=== PATIENT | male | born 1980 | race Caucasian/White ===

== ENCOUNTER → 2019-09-11 | Outpatient (CLI) | payer BC ==
--- NOTE | 2019-09-11 08:33 | CT ---
EXAMINATION TYPE: CT soft tissue neck w con, CT sinus wo con DATE OF EXAM: 09/11/2019 8:13 AM COMPARISON: CT facial bones 05/09/2015 HISTORY: anterior throat pain, radiates into jaw (accession [id number]), chronic sinusitis (accession [id number]) CT DLP: 578.1 (accession [id number]), 728.4 (accession [id number]) mGycm Automated exposure control for dose reduction was used. CONTRAST: CT scan of the neck and sinuses is performed following with IV Contrast, patient injected with 100 mL of Isovue 300. Axial images are obtained, coronal and sagittal reformatted images are reviewed. FINDINGS: Airway: There are punctate calcifications along the pharyngeal soft tissues consistent with chronic i nfection. Parotid/submandibular glands: No gross abnormality seen. Carotid/Vascular Structures: Transverse aorta, 3 super aortic branch vessels are patent. Left and rig ht vertebral arteries are patent and codominant. Internal and external carotid arteries are patent. Osseous Structures: There is inflammatory change involving the maxillary sinuses, mucoperiosteal thic kening is present, there may be mucus retention cyst in the antrum of the right maxillary sinus, exte nsive inflammatory change also present within the ethmoid air cells, frontal ethmoidal junction. Osti omeatal units are patent although there is inflammatory change, mucoperiosteal thickening extending a t this level. There is a deviated nasal septum towards the left. Cerumen present in the external morris tory canals bilaterally. Previously identified inferior blowout fracture on the right on prior CT marry ws residual incomplete fracture healing, bone defect. Small amount of fat herniated through the infer ior orbital wall defect on the right. No muscular entrapment identified. Some mild degenerative disc changes present in the lower cervical spine. Other: No evident adenopathy, shotty nodes are present along the cervical chains.. IMPRESSION: Pansinusitis. Old inferior blowout fracture right orbit, chronic tonsillitis findings ar e suggested as described, correlate.
== END | disposition home or self-care (01) ==
LOC: RADCTMAIN 07:42
PROVIDERS: ATTEND Otolaryngology
DX: J32.4 Chronic pansinusitis (principal); Z87.81 Personal history of (healed) traumatic fracture; J32.9 Chronic sinusitis, unspecified; R07.0 Pain in throat
CPT/HCPCS: 70491; 70486; Q9967

== ENCOUNTER 2020-04-27 13:01 | Emergency (ER) | payer BC, OTHER ==
[2020-04-27 13:12] VITALS: BP 149/87; PULSE 77; RESP 18; TEMP 98.4
[2020-04-27] MEDS ORDERED: RABIES IMMUNE GLOB 300 UNIT/ML 1 ML VIAL IM ONE (13:47)
[2020-04-27] MEDS ORDERED: RABIES VACCINE (PCEC) 2.5 UNIT KIT IM ONE (13:47)
[2020-04-27] MEDS ORDERED: RABIES IMMUNE GLOB 300 UNIT/ML 5 ML VIAL IM ONE (14:00)
--- NOTE | 2020-04-27 14:20 | ED ---
Skin/Abscess/FB HPI - General Chief complaint: Skin/Abscess/Foreign Body Stated complaint: [facility] potential rabies exposure Time Seen by Provider: 04/27/20 13:16 Source: patient Mode of arrival: ambulatory Limitations: no limitations - History of Present Illness Initial comments: Patient is a 39-year-old male presenting to the emergency Department with prosper yanez of possible rabies exposure. Patient is a secretary of police and stated that yesterday he went to a call with a rabid raccoon, he killed the raccoon with his club. Patient states when he was cleaning up the animal he thinks he may have been exposed to the raccoons blood and possible saliva. Patient states he has a few minor cuts on his hands and is very concerned that he might get rabies from this. He states the animal is in the customers garbage can and was not tested. Patient states he believes it was very rabid. Patient denies any other symptoms at this time, no fever, no chills, no pain in his hands. He denies any pertinent past medical history. He has no further complaints at this time. - Related Data Previous Rx's Medication Instructions Recorded Amoxicillin 500 mg PO Q8H #30 capsule 05/09/15 HYDROcodone/APAP 10-325MG [[place] 1 tab PO Q6H PRN #20 tab 05/09/15 10-325] Allergies Allergy/AdvReac Type Severity Reaction Status Date / Time No Known Allergies Allergy Verified 04/27/20 13:12 Review of Systems ROS Statement: Those systems with pertinent positive or pertinent negative responses have been documented in the HPI. ROS Other: All systems not noted in ROS Statement are negative. Past Medical History Past Medical History: No Reported History History of Any Multi-Drug Resistant Organisms: None Reported Past Surgical History: Orthopedic Surgery Additional Past Surgical History / Comment(s): KNEE SURGERY, sinus surgery Past Psychological History: No Psychological Hx Reported Smoking Status: Former smoker Past Alcohol Use History: Occasional Past Drug Use History: None Reported General Exam - General Exam Comments Initial Comments: GENERAL: Patient is well-developed and well-nourished. Patient is nontoxic and in no acute distress. HEAD: Atraumatic, normocephalic. EYES: Pupils equal round and reactive to light, extraocular movements intact, sclera anicteric, conjunctiva are normal. Eyelids were unremarkable. ENT: TMs normal, nares patent, oropharynx clear without exudates. Moist mucous membranes. NECK: Normal range of motion, supple without lymphadenopathy or JVD. LUNGS: Unlabored respirations. Breath sounds clear to auscultation bilaterally and equal. No wheezes rales or rhonchi. HEART: Regular rate and rhythm without murmurs, rubs or gallops. ABDOMEN: Soft, nontender, normoactive bowel sounds. No guarding, no rebound. No masses appreciated. : Deferred MUSCULOSKELETAL: Normal extremities with adequate strength and normal range of motion, no pitting or edema. No clubbing or cyanosis. NEUROLOGICAL: Patient is alert and oriented x 3. Motor and sensory are also intact. Cranial nerves II through XII grossly intact. Symmetrical smile. Normal speech, normal gait. PSYCH: Normal mood, normal affect. SKIN: Warm, Dry, normal turgor, no rashes. Patient has a few very mild abrasions to both hands, all look old and healing. No new wounds are noted. Limitations: no limitations Course Vital Signs 04/27/20 13:08 Temperature 98.4 F Pulse Rate 77 Respiratory 18 Rate Blood Pressure 149/87 O2 Sat by Pulse 99 Oximetry Medical Decision Making - Medical Decision Making Patient is a 39-year-old male here for concerns of possible rabies exposure yesterday while he was at work. His vital signs are stable. Patient has no new wounds noted on his hands, he does have a few old scratches that are healing. Patient will be started on the rabies vaccine, first dose given today as well as the rabies immunoglobulin. He will repeat these doses on day 3, day 7, and a 14. He is stable for discharge at this time. He can follow up with his regular doctor. He is in agreement with this plan of care. Case discussed with Dr. Adams. Disposition Clinical Impression: Rabies exposure Disposition: HOME SELF-CARE Condition: Stable Instructions (If sedation given, give patient instructions): Rabies Vaccine (ED) Additional Instructions: Please return to the Emergency Department if symptoms worsen or any other concerns. Continue with rabies vaccine on day 3, day 7, day 14 as prescribed. Is patient prescribed a controlled substance at d/c from ED?: No Referrals: Madisyn Lewis DO [Primary Care Provider] - 1-2 days
== END 2020-04-27 14:46 | disposition home or self-care (01) ==
LOC: EC 13:01
DX: Z20.3 Contact with and (suspected) exposure to rabies (principal); Z87.891 Personal history of nicotine dependence
CPT/HCPCS: 90375; 90471; 90675; 96372; 99283

== ENCOUNTER → 2020-07-19 | Outpatient (CLI) | payer BC ==
--- NOTE | 2020-07-19 10:18 | CT ---
EXAMINATION TYPE: CT brain wo con DATE OF EXAM: 07/19/2020 COMPARISON: None INDICATION: Headaches DLP: 1121 mGycm, Automated exposure control for dose reduction was used. CONTRAST: None CT of the brain is performed utilizing 3 mm thick sections through the posterior fossa and 3 mm thick sections through the remaining calvarium. Study is performed within 24 hours of arrival to the hosp ital. No abnormal hyperdensity is present to suggest an acute intracranial hemorrhage. No mass lesion is evident. No acute infarcts are evident. Ventricles and sulci are appropriate for the patient age. Post ethmoidectomy is evident. Uncinectomies and then performed. Mild mucosal thickening within resid ual ethmoid air spaces. Mastoid air cells are clear. IMPRESSIONS: 1. Normal CT Brain
== END | disposition home or self-care (01) ==
LOC: RADCTMAIN 09:12
PROVIDERS: ATTEND Family Medicine
DX: R51.9 Headache, unspecified (principal)
CPT/HCPCS: 70450

== ENCOUNTER → 2020-09-23 | Outpatient (CLI) | payer BC ==
--- NOTE | 2020-09-24 08:29 | CT ---
EXAMINATION TYPE: CT soft tissue neck w con DATE OF EXAM: 09/23/2020 COMPARISON: None HISTORY: Pain in throat CT DLP: 675.70 mGycm CONTRAST: CT scan of the neck is performed with IV Contrast, patient injected with 100 mL of Isovue 300. Contrast enhanced CT of the neck was performed from the skull base through the lung apices. AIRWAY: The supraglottic, glottic, and subglottic portions of the airway appear patent and free of mass. SALIVARY GLANDS: The submandibular and parotid glands are free of mass or inflammatory process. THYROID GLAND: No nodules or masses seen. LYMPH NODES: No adenopathy seen greater than 1cm. LUNG APICES: No nodule or mass is seen. OTHER: Vascular structures are patent. No significant degenerative change of the cervical spine. N o abscess seen. IMPRESSION: No significant abnormality seen to account for the patient's symptoms.
== END | disposition home or self-care (01) ==
LOC: RADCTMAIN 18:45
PROVIDERS: ATTEND Nurse Practitioner Family
DX: R07.0 Pain in throat (principal)
CPT/HCPCS: 70491; Q9967

== ENCOUNTER → 2020-10-11 | Outpatient (CLI) | payer BC ==
--- NOTE | 2020-10-11 14:23 | CT ---
EXAMINATION TYPE: CT sinus wo con DATE OF EXAM: 10/11/2020 COMPARISON: 09/11/2019 HISTORY: Chronic sinusitis CT DLP: 667.[address] of the paranasal sinuses was performed in the axial and coronal planes. Bone and soft tissue settings are submitted. The paranasal sinuses demonstrate normal aeration and development. The bilateral medial maxillary antrectomy and partial ethmoidectomy noted. There are a few thickened remaining inferior ethmoid air cells. Mucosal thickening of the frontal sinuses. Sphenoid sinuses wel l aerated. The osteal meatal units are patent bilaterally. The nasal septum is midline. No bony destructive changes are seen within the field of view. IMPRESSION: Chronic ethmoidal and frontal sinusitis. Postoperative changes as noted.
== END | disposition home or self-care (01) ==
LOC: RADCTMAIN 13:27
PROVIDERS: ATTEND Family Medicine
DX: J32.1 Chronic frontal sinusitis (principal); J32.2 Chronic ethmoidal sinusitis
CPT/HCPCS: 70486

== ENCOUNTER 2022-12-02 17:57 | Emergency (ER) | payer BC ==
[2022-12-02] MEDS ORDERED: FAMOTIDINE 20 MG/2 ML VIAL IV STA (18:56)
[2022-12-02] MEDS ORDERED: SODIUM CHLORIDE 0.9% 500 ML 500 ML IV STA (18:56)
[2022-12-02] MEDS ORDERED: diphenhydrAMINE 50 MG/ML 1 ML VIAL IVP STA (18:56)
[2022-12-02 21:20] VITALS: RESP 18
--- NOTE | 2022-12-02 21:41 | ED ---
Skin/Abscess/FB HPI - General Chief complaint: Skin/Abscess/Foreign Body Stated complaint: Allergic Reaction Time Seen by Provider: 12/02/22 18:14 Source: patient Mode of arrival: ambulatory Limitations: no limitations - History of Present Illness Initial comments: This patient is a 42-year-old man presenting to have evaluation of what he believes is ALLERGIC reaction. The patient relates that he had and given a cortisone injection in his foot. Later he noticed that he was developing itchy rash and swelling around the eyes and face. The patient's denies no other known exposure. No wheezing or dyspnea noted. No vomiting or diarrhea. MD complaint: rash -: hour(s) Tetanus Up to Date: yes Location: generalized, face Consistency: constant Improves with: none Worsens with: none Context: new medication Associated symptoms: denies other symptoms - Related Data Previous Rx's Medication Instructions Recorded Famotidine [Pepcid] 20 mg PO BID #14 tablet 12/02/22 diphenhydrAMINE [Benadryl] 50 mg PO QID PRN #30 capsule 12/02/22 Allergies Allergy/AdvReac Type Severity Reaction Status Date / Time rabies immune globulin Allergy Dyspnea Verified 12/02/22 18:07 Review of Systems ROS Statement: Those systems with pertinent positive or pertinent negative responses have been documented in the HPI. ROS Other: All systems not noted in ROS Statement are negative. Constitutional: Denies: fever, chills Respiratory: Denies: cough, dyspnea Cardiovascular: Denies: chest pain, edema Gastrointestinal: Denies: abdominal pain, vomiting, diarrhea Skin: Reports: as per HPI, rash Neurological: Denies: headache, weakness Past Medical History Past Medical History: No Reported History History of Any Multi-Drug Resistant Organisms: None Reported Past Surgical History: Orthopedic Surgery Additional Past Surgical History / Comment(s): KNEE SURGERY, sinus surgery, vasectomy Past Anesthesia/Blood Transfusion Reactions: No Reported Reaction Past Psychological History: No Psychological Hx Reported Smoking Status: Former smoker Past Alcohol Use History: Occasional Past Drug Use History: None Reported General Exam Limitations: no limitations General appearance: alert, in no apparent distress Head exam: Present: atraumatic, normocephalic Eye exam: Present: normal appearance. Absent: scleral icterus, conjunctival injection ENT exam: Present: normal oropharynx Neck exam: Present: normal inspection, full ROM Respiratory exam: Present: normal lung sounds bilaterally. Absent: respiratory distress, wheezes, rales, rhonchi, stridor Cardiovascular Exam: Present: normal rhythm, bradycardia, normal heart sounds. Absent: systolic murmur, diastolic murmur, rubs, gallop GI/Abdominal exam: Present: soft. Absent: distended, tenderness, guarding, rebound, rigid Extremities exam: Present: normal inspection Neurological exam: Present: alert Skin exam: Present: warm, dry, intact, normal color, urticaria Course Vital Signs 12/02/22 12/02/22 12/02/22 18:03 21:00 22:31 Temperature 98.3 F 98.8 F Pulse Rate 48 L 67 71 Respiratory 20 18 18 Rate Blood Pressure 161/83 131/86 137/84 O2 Sat by Pulse 99 99 97 Oximetry Medical Decision Making - Medical Decision Making Patient's 42-year-old man here for suspected ALLERGIC reaction after receiving a cortisone injection in his foot. The patient is given antihistamines here. There was minimal improvement in his symptoms. We discussed giving steroid but at this point we'll hold given concerns of possible ALLERGY. The patient will have follow-up with television producer to determine if there is indeed true ALLERGY to the cortisone administration. We discussed appropriate further care and follow-up as well as return parameters Was pt. sent in by a medical professional or institution ([facility], G[employer]TER, urgent care, hospital, or penitentiary...) When possible be specific @ -[No] Did you speak to anyone other than the patient for history (EMS, parent, family, police, friend...)? What history was obtained from this source @ -[No] Did you review nursing and triage notes (agree or disagree)? Why? @ -[I reviewed and agree with nursing and triage notes] Were old charts reviewed (outside hosp., previous admission, EMS record, old EKG, old radiological studies, urgent care reports/EKG's, penitentiary records)? Report findings @ -[No old charts were reviewed] Differential Diagnosis (chest pain, altered mental status, abdominal pain women, abdominal pain men, vaginal bleeding, weakness, fever, dyspnea, syncope, headache, dizziness, GI bleed, back pain, seizure, CVA, palpatations, mental health, musculoskeletal)? @ -[Differential diagnosis of the rash and facial swelling includes ALLERGIC reaction, infection, vasculitis, other dermatitis, amongst other conditions EKG interpreted by me (3pts min.). @ -[ X-rays interpreted by me (1pt min.). @ -[None done] CT interpreted by me (1pt min.). @ -[None done] U/S interpreted by me (1pt. min.). @ -[None done] What testing was considered but not performed or refused? (CT, X-rays, U/S, labs)? Why? @ -[None] What meds were considered but not given or refused? Why? @ -[None] Did you discuss the management of the patient with other professionals (professionals i.e. Dr., PA, GAS [employer]TER, lab, RT, psych nurse, social organization professor, regulatory product manager, teacher, articulation officer, nurse case manager)? Give summary @ -[No] Was smoking cessation discussed for >3mins.? @ -[No] Was critical care preformed (if so, how long)? @ -[No] Were there social determinants of health that impacted care today? How? (Homelessness, low income, unemployed, alcoholism, drug addiction, transportation, low edu. Level, literacy, decrease access to med. care, half-way, rehab)? @ -[No] Was there de-escalation of care discussed even if they declined (Discuss DNR or withdrawal of care, Hospice)? DNR status @ -[No] What co-morbidities impacted this encounter? (DM, HTN, Smoking, COPD, CAD, Cancer, CVA, ARF, Chemo, Hep., AIDS, mental health diagnosis, sleep apnea, morbid obesity)? @ -[None] Was patient admitted / discharged? Hospital course, mention meds given and route, prescriptions, significant lab abnormalities, going to OR and other pertinent info. @ -[As above Undiagnosed new problem with uncertain prognosis? @ -[No] Drug Therapy requiring intensive monitoring for toxicity (Heparin, Nitro, Insulin, Cardizem)? @ -[No] Were any procedures done? @ -[No] Diagnosis/symptom? @ -[Acute ALLERGIC reaction Acute, or Chronic, or Acute on Chronic? @ -[Acute Uncomplicated (without systemic symptoms) or Complicated (systemic symptoms)? @ -[Uncomplicated Side effects of treatment? @ -[No] Exacerbation, Progression, or Severe Exacerbation? @ -[No] Poses a threat to life or bodily function? How? (Chest pain, [place], MS, pneumonia, PE, COPD, DKA, ARF, appy, cholecystitis, CVA, Diverticulitis, Homicidal, [place], threat to staff... and all critical care pts) @ -[No] Disposition Clinical Impression: Allergic reaction Disposition: HOME SELF-CARE Condition: Good Instructions (If sedation given, give patient instructions): General Allergic Reaction (ED) Prescriptions: diphenhydrAMINE [Benadryl] 50 mg PO QID PRN #30 capsule PRN Reason: Rash Famotidine [Pepcid] 20 mg PO BID #14 tablet Is patient prescribed a controlled substance at d/c from ED?: No Referrals: Jg Ambrocio Jr, DO [Primary Care Provider] - 1-2 days Maxine Conner MD [STAFF PHYSICIAN] - 1-2 days
[2022-12-02 22:33] VITALS: BP 137/84; PULSE 71; TEMP 98.8
== END 2022-12-02 22:33 | disposition home or self-care (01) ==
LOC: EC 17:57
DX: T78.40XA Allergy, unspecified, initial encounter (principal); Z87.891 Personal history of nicotine dependence; Z88.8 Allergy status to other drugs, medicaments and biological substances
CPT/HCPCS: 99283; 96374; 96375; 96372; J0171; J1200; J3490